=== PATIENT | male | born 1995 | race Hispanic/Latino ===

== ENCOUNTER 2025-04-05 10:35 | Emergency (ER) | payer SELFPAY ==
[2025-04-05] MEDS ORDERED: Acetaminophen 500 MG TAB ONE (10:57)
[2025-04-05] MEDS ORDERED: Ketorolac Tromethamine 30 MG (1 mL) VIAL ONE (10:57)
== END 2025-04-05 11:07 | disposition home or self-care (01) ==
LOC: ERS 10:35
DX: M54.50 Low back pain, unspecified (principal)
CPT/HCPCS: 96372; 99282; J1885